=== PATIENT | female | born 1995 ===

== ENCOUNTER 2022-07-27 05:51 | Inpatient (IN) | payer SELFPAY ==
[2022-07-27] MEDS ORDERED: fentaNYL 100 MCG/2 ML INJ IV PRN (08:41)
[2022-07-27] MEDS ORDERED: OXYTOCIN DRIP 30 UNITS/500 ML BAG IV SCH ×2 (09:00)
--- NOTE | 2022-07-27 09:12 | History and Physical Report ---
History of Present Illness Date of examination: 07/27/22 Date of admission: 07/27/22 08:41 Chief complaint: Contractions History of present illness: 26-year-old primagravida at 39-2/7 weeks gestation presents to OB triage reporting regular and painful uterine contractions every 5 minutes. There is no vaginal bleeding. There is no leaking of fluid. There is good movement. In OB triage, cervix is noted be 4 cm dilated. She is admitted to labor and delivery in early labor. Past History Past Medical History: no pertinent history Past Surgical History: no surgical history Family/Genetic History: none Social history: no significant social history - Obstetrical History Expected Date of Delivery: 08/01/22 Actual Gestation: 39 Week(s) 2 Day(s) : 1 Para: 0 Hx # Term Pregnancies: 0 Number of Pregnancies: 0 Spontaneous Abortions: 0 Induced : 0 Number of Living Children: 0 Medications and Allergies Allergies Allergy/AdvReac Type Severity Reaction Status Date / Time No Known Allergies Allergy Unverified 07/27/22 08:22 Active Meds: Active Medications Acetaminophen (Acetaminophen 325 Mg Tab) 650 mg PO Q4H PRN PRN Reason: Pain, Mild (1-3) Butorphanol Tartrate (Butorphanol 2 Mg/1 Ml Inj) 2 mg IV Q2H PRN PRN Reason: Pain, Moderate(4-6) LABOR PAIN Carboprost Tromethamine (Carboprost Tromethamine 250 Mcg/1 Ml Inj) 250 mcg IM ONCE PRN PRN Reason: Uterine Bleeding Ephedrine Sulfate (Ephedrine Sulfate 50 Mg/1 Ml Inj) 10 mg IV Q2M PRN PRN Reason: Hypotension Fentanyl (Fentanyl 100 Mcg/2 Ml Inj) 100 mcg IV Q2H PRN PRN Reason: Pain,Severe (7-10) LABOR PAIN Oxytocin/Sodium Chloride (Pitocin/Ns 30 Unit/500ml) 30 units in 500 mls @ 2 mls/hr IV TITR DEION; Protocol Lactated Ringer's (Lactated Ringers) 1,000 mls @ 125 mls/hr IV DIRECT DEION Oxytocin/Sodium Chloride (Pitocin/Ns 30 Unit/500ml) 30 units in 500 mls @ 40 mls/hr IV TITR DEION; Protocol Methylergonovine Maleate (Methylergonovine Maleate 0.2 Mg/Ml Vial) 0.2 mg IM ONCE PRN PRN Reason: Uterine Bleeding Terbutaline Sulfate (Terbutaline 1 Mg/1 Ml Inj) 0.25 mg SUB-Q ONCE PRN PRN Reason: Hyperstimulation/Hypertonicity Review of Systems All systems: negative - Vital Signs Vital signs: Vital Signs Pulse Pulse Ox 69 98 07/27/22 06:47 07/27/22 06:47 Temp Pulse Resp BP Pulse Ox 98 F 70 16 148/80 100 07/27/22 07:45 07/27/22 09:09 07/27/22 07:45 07/27/22 09:07/27/22 09:07 - Physical Exam Breasts: Positive: normal Cardiovascular: Regular rate Lungs: Positive: Normal air movement Abdomen: Positive: normal appearance Genitourinary (Female): Positive: normal external genitalia, normal perenium Vulva: both: normal Vagina: Positive: normal moisture Uterus: Positive: enlarged Adnexa: both: normal Anus/Rectum: Positive: normal perianal skin Extremities: Positive: normal Deep Tendon Reflex Grade: Normal +2 - Obstetrical FHR: category 1 Uterine Contraction Monitor Mode: External Cervical Dilatation: 4 Uterine Contraction Frequency (min): 5 Results All other labs normal. Ultrasound: pending Assessment and Plan - Patient Problems (1) 39 weeks gestation of Current Visit: Yes Status: Acute Plan to address problem: care is up-to-date. She is GBS negative (2) Active labor at term Current Visit: Yes Status: Acute Plan to address problem: This patient is in early labor. Admit to labor and delivery. Augment with Pitocin. Epidural as needed. Artificial rupture membranes when possible.
[2022-07-27 09:43] LABS: Hematocrit 40.3 % (30.3-42.9); Hemoglobin 13.7 gm/dl (10.1-14.3); Mean Corpuscular HGB Conc 34 % (30-34); Mean Corpuscular Volume 89 fl (79-97); Platelet Count 191 K/mm3 (140-440); Red Blood Count 4.54 M/mm3 (3.65-5.03); Red Cell Distribution Width 13.7 % (13.2-15.2)
[2022-07-27] MEDS ORDERED: ACETAMINOPHEN 325 MG TAB PO PRN (10:00)
[2022-07-27] MEDS ORDERED: ePHEDrine SULFATE 50 MG/1 ML INJ IV PRN ×2 (10:00→15:01)
[2022-07-27] MEDS ORDERED: BUTORPHANOL 2 MG/1 ML INJ IV PRN (10:00)
[2022-07-27] MEDS ORDERED: METHYLERGONOVINE MALEATE 0.2 MG/ML VIAL IM PRN (10:00)
[2022-07-27] MEDS ORDERED: CARBOPROST TROMETHAMINE 250 MCG/1 ML INJ IM PRN (10:00)
[2022-07-27] MEDS ORDERED: TERBUTALINE 1 MG/1 ML INJ SUB-Q PRN (10:00)
[2022-07-27] MEDS ORDERED: LACTATED RINGERS 1,000 ML IV SCH (10:00)
--- NOTE | 2022-07-27 11:17 | Ultrasound Report ---
LIMITED OBSTETRICAL ULTRASOUND INDICATION: Labor, clinical dating 39 weeks 2 days COMPARISON: None available FINDINGS: Single intrauterine is seen in a cephalic position. Placenta is right lateral and free of the internal cervical os. Amniotic fluid appears qualitatively reduced and JUAN F is reduced at 4.4 cm. No obvious anatomic abnormalities are seen but this was not an anatomic survey. Cardiac acti vity was documented at 131 bpm period Dating is as follows (weeks.days): BPD 8.83 cm, 35.5 Head circumference 31.06 cm, 34.5 Abdominal circumference 33.15 cm, 37.0 Femur length 7.14 cm, 36.4 Average ultrasound age 36.0, EDC 08/24/2022 Estimated weight 2960 +/- 4 3 8 g IMPRESSION: 36 week 0 day single intrauterine with decreased amniotic fluid Signer Name: Matt Dickerson MD Signed: 07/27/2022 11:13 AM Workstation Name: [id number]
[2022-07-27 11:43] LABS: Alanine Aminotransferase 16 units/L (7-56); Albumin 3.6 g/dL (3.9-5); BUN/Creatinine Ratio 13; Blood Urea Nitrogen 10 mg/dL (7-17); Calcium 9.8 mg/dL (8.4-10.2); Hemolysis Index 2; Uric Acid 3.9 mg/dL (3.5-7.6)
[2022-07-27] MEDS ORDERED: NALOXONE 0.4 MG/1 ML INJ IV PRN (15:01)
--- NOTE | 2022-07-27 15:03 | Anesthesia Consultation ---
Anesthesia Consult and Med Hx Date of service: 07/27/22 - Airway Anesthetic Teeth Evaluation: Good ROM Head & Neck: Adequate Mental/Hyoid Distance: Adequate Mallampati Class: Class II Intubation Access Assessment: Probably Good - Pulmonary Exam CTA: Yes - Cardiac Exam Cardiac Exam: RRR - Pre-Operative Health Status ASA Pre-Surgery Classification: ASA2 Proposed Anesthetic Plan: Epidural - Pulmonary Hx Smoking: No Hx Asthma: No Hx Respiratory Symptoms: No SOB: No COPD: No Home Oxygen Therapy: No Hx Pneumonia: No Hx Sleep Apnea: No - Cardiovascular System Hx Hypertension: No Hx Coronary Artery Disease: No Hx Heart Attack/AMI: No Hx Angina: No Hx Percutaneous Transluminal Coronary Angioplasty (PTCA): No Hx Cardia Arrhythmia: No Hx Pacemaker: No Hx Internal Defibrillator: No Hx Valvular Heart Disease: No Hx Heart Murmur: No Hx Peripheral Vascular Disease: No - Central Nervous System Hx Neuromuscular Disorder: No Hx Seizures: No CVA: No Hx Back Pain: No Hx Psychiatric Problems: No - Gastrointestinal Hx Ulcer: No Hx Gastroesophageal Reflux Disease: No - Endocrine Hx Renal Disease: No Hx End Stage Renal Disease: No Hx Cirrhosis: No Hx Liver Disease: No Hx Insulin Dependent Diabetes: No Hx Non-Insulin Dependent Diabetes: No Hx Thyroid Disease: No Hx Hypothyroidism: No Hx Hyperthyroidism: No - Hematic Hx Anemia: No Hx Sickle Cell Disease: No - Other Systems Hx Alcohol Use: No Hx Substance Use: No Hx Cancer: No Hx Obesity: No
--- NOTE | 2022-07-27 15:03 | Anesthesia Day of Surgery ---
Anesthesia Day of Surgery - Day of Surgery Patient Examined: Yes Patient H&P Reviewed: Yes Patient is NPO: Yes Beta Blockers: No Cardiac Clearance: No Pulmonary Clearance: No Ho's Test: N/A
--- NOTE | 2022-07-27 15:04 | Progress Note ---
Labor Epidural - Labor Epidural Start Time: 14:38 Stop Time: 14:45 Performed by:: GENE WALKER Procedure: Epidural Requested for Labor Pain. H&P and PT Chart reviewed and consent obtained. Time out performed and the procedure was explained, all questions answered. Patient was placed in a sitting position with monitors applied. The PTs back was prepped and draped in usual sterile fashion. The Skin was localized with 3 mL of 1% lidocaine at L3-L4. A 17-gauge Touhy epidural needle was advanced to SHAYY with saline at 7 cm and no blood/CSF was noted via epidural needle. Epidural catheter was advanced to 12 cm. There was negative aspiration for blood and CSF in the catheter and negative response to a test dose of 3 ml 1.5% lidocaine w/ Epi and a sterile dressing was applied Patient tolerated the procedure well and there were no immediate complications noted.
[2022-07-27] MEDS ORDERED: fentaNYL-BUPIV 2 MCG/ML-0.125% 200 MCG/100 ML BAG EPIDURAL SCH (15:30)
[2022-07-27] MEDS ORDERED: MINERAL OIL 30 ML ORAL LIQD ONE (16:56)
[2022-07-27] MEDS ORDERED: miSOPROStol 200 MCG TAB ONE (18:40)
[2022-07-27] MEDS ORDERED: miSOPROStol 200 MCG TAB PR ONE (18:46)
--- NOTE | 2022-07-27 19:20 | Procedure Note ---
OB Delivery Note - Delivery Date of Delivery: 07/27/22 (1831) Surgeon: REBA REESE Estimated blood loss: other (400) - Vaginal Delivery presentation: vertex Delivery position: OA Intrapartum events: none Delivery induction: none Delivery augmentation: pitocin Delivery monitor: external FHT, external uterine Route of delivery: Delivery placenta: spontaneous Delivery cord: 3 umbilical vessels Episiotomy: none Delivery laceration: 2nd degree Delivery repair: vicryl Anesthesia: epidural Delivery comments: of a live 6'8 male over a 2nd degree perineal laceration under epidural with Apgars of 8 and 9 at 1831 on 07/27/2022. directly to maternal abd/maternal chest, skin to skin contact. 2nd degree laceration repaired with 2-[address]-1 and SH. Large gushes of uterine bleeding prior to delivery of placenta. Spontaneous delivery of placenta complete and intact with Ramachandran side presenting at 1835. Large amount of uterine bleeding after delivery of placenta. Bleeding became scant with external uterine massage, Methergine 0.2mg IM and Cytotec 800mcg per rectum. Delayed cord clamping and cutting; Cord cut by the Father of the Baby. Cord blood collected; Placenta discarded. - A at 1 minute: 8 at 5 minutes: 9 Infant Gender: Male (6'8)
[2022-07-27] MEDS ORDERED: HYDROcodone/ACETAMINOPHEN 5-325 MG TAB PO PRN (19:24)
[2022-07-27] MEDS ORDERED: WITCH HAZEL/ GLYCERIN PAD TP PRN (19:24)
[2022-07-27] MEDS ORDERED: BENZOCAINE/MENTHOL 20/0.5% TOP SPRAY 56 GM TP PRN (19:24)
[2022-07-27] MEDS ORDERED: LANOLIN/ZINC/DIMETHICONE (LANSINOH) 7 GM TP PRN (19:24)
[2022-07-27] MEDS ORDERED: PROMETHAZINE 25 MG TAB PO PRN (19:24)
[2022-07-27] MEDS ORDERED: diphenhydrAMINE 25 MG CAP PO PRN (19:24)
[2022-07-28] MEDS: IBUPROFEN 800 MG TAB PO SCH ×3 (03:29→17:12)
[2022-07-28] MEDS ORDERED: PRENATAL VIT27-FE FUMARATE-FOLIC ACID VIT TAB PO SCH (10:00)
--- NOTE | 2022-07-28 11:42 | Progress Note ---
Assessment and Plan PPD # 1 A: S/P p: Continue routine pp orders Awaiting pp cbc D/C home tomm if stable Subjective - Subjective Date of service: 07/28/22 Principal diagnosis: s/p Patient reports: appetite normal, voiding normally, pain well controlled, ambulating normally : other (Pt states baby is not eating well and is vomting formula back up. Nurse and peds were notified.) Objective - Vital Signs Latest vital signs: Vital Signs Temp Pulse Resp BP Pulse Ox Pulse Ox 07/28/22 10:52 16 07/28/22 05:06 98.4 F 92 H 20 122/72 96 07/28/22 04:29 18 07/28/22 03:29 20 07/28/22 02:21 98.8 F 86 20 138/87 98 07/27/22 21:41 99.4 F 86 18 133/94 100 100 07/27/22 19:53 103 H 116/81 07/27/22 19:36 110 H 136/71 07/27/22 19:25 110 H 125/59 07/27/22 19:06 104 H 116/80 07/27/22 18:51 150 H 129/82 07/27/22 18:43 137 H 128/74 07/27/22 18:24 129 H 145/80 07/27/22 18:09 134 H 159/88 07/27/22 17:54 113 H 126/80 07/27/22 17:39 115 H 139/92 07/27/22 17:24 133 H 155/74 07/27/22 16:30 98.2 F 07/27/22 16:10 81 97/41 07/27/22 16:07 74 101/72 07/27/22 15:07 82 119/71 07/27/22 15:05 94 H 112/67 07/27/22 15:03 104 H 114/69 07/27/22 15:01 95 H 117/71 07/27/22 15:00 98.2 F 07/27/22 14:59 111 H 110/68 07/27/22 14:57 93 H 121/72 07/27/22 14:55 104 H 122/74 07/27/22 14:53 100 H 117/77 07/27/22 14:51 94 H 121/75 07/27/22 14:49 83 124/80 07/27/22 14:47 82 129/78 07/27/22 14:46 80 138/79 07/27/22 14:25 86 149/78 07/27/22 13:55 85 153/80 07/27/22 13:24 64 137/85 07/27/22 12:54 71 147/85 07/27/22 12:24 65 151/88 07/27/22 11:43 72 147/77 100 Intake and Output 07/27/22 07/28/22 07/28/22 22:59 06:59 14:59 Intake Total 6.267 360 Balance 6.267 360 Intake: IV 6.267 PITOCin/NS 30 UNIT/500ML 6.267 30 units In 500 ml @ 2 mls/hr IV TITR DEION Rx#: [id number] Intake, Free Water 360 Other: # Voids Void 1 Estimated Blood Loss 200 - Exam Breasts: Present: normal Abdomen: Present: normal appearance, soft, normal bowel sounds Vulva: both: normal Uterus: Present: normal, firm, fundal height below umbilicus Extremities: Present: normal Incision: Present: normal, intact - Labs Labs: Abnormal lab results 07/27/22 Range/Units Unknown Sodium 135 L (137-145) mmol/L Alkaline Phosphatase 435 H (35-129) units/L Lactate Dehydrogenase 255 H (91-180) units/L Albumin 3.6 L (3.9-5) g/dL
--- NOTE | 2022-07-28 12:00 | Discharge Summary ---
Providers - Providers Date of Admission: 07/27/22 08:41 Date of discharge: 07/29/22 Attending physician: TROY HERNANDEZ MD Primary care physician: TROY HERNANDEZ MD Hospitalization Reason for admission: active labor Delivery: Episiotomy: none Laceration: 2nd degree Incision: normal, intact Other procedures: none complications: none Discharge diagnosis: IUP at term delivered baby: male Hospital course: Pt was admitted to [facility] in active labor. She had a w/o pp complications. See H&P, delivery summary and pp notes. Condition at discharge: Stable Disposition: HOME / SELF CARE / HOMELESS Plan - Discharge Medications Prescriptions: Benzocaine/Menthol [Dermoplast] 1 spray TP PRN PRN 7 Days #1 can PRN Reason: Episiotomy Pain Ibuprofen [Motrin 800 MG tab] 800 mg PO Q6H PRN #20 tablet PRN Reason: Menstrual Cramps - Provider Discharge Summary Activity: routine, no sex for 6 weeks, no heavy lifting 4 weeks, no strenuous exercise Diet: routine Instructions: routine Additional instructions: [] Smoking cessation referral if applicable(refer to patient education folder for contact #) [] Refer to [facility]'s [facility] Booklet Call your doctor immediately for: * Fever > 100.5 * Heavy vaginal bleeding ( >1 pad per hour) * Severe persistent headache * Shortness of breath * Reddened, hot, painful area to leg or breast * Drainage or odor from incision. * Keep incision clean and dry at all times and follow doctor's instructions regarding bathing/showering - Follow up plan Follow up: TROY HERNANDEZ MD [Primary Care Provider] - 6 Weeks
[2022-07-28 12:49] LABS: Hematocrit 31.9 % (30.3-42.9); Hemoglobin 10.8 gm/dl (10.1-14.3)
[2022-07-28 16:55] VITALS: BP 117/76
--- NOTE | 2022-07-28 21:35 | Post Anesthesia Evaluation ---
- Post Anesthesia Evaluation Patient Participated: No Airway Patent: Yes Stable Respiratory Function: Yes Nausea/Vomiting: No Temp > 96.8F: Yes Pain Manageable: Yes Adequeate Hydration: Yes Anesthesia Complications: No Block Receding Appropriately: Yes Patient on Ventilator: No
== END 2022-07-28 23:36 | disposition home or self-care (01) | DRG 807 ==
LOC: TRG 05:51 → APU 05:53 → TRG 09:00 → LD 12:04 → OB 21:34
PROVIDERS: ADMIT Obstetrics & Gynecology Gynecology; ATTEND Obstetrics & Gynecology Gynecology
PROC: 10E0XZZ Delivery of Products of Conception, External Approach (ICD-10-PCS; principal; 2022-07-27)
PROC: 0KQM0ZZ Repair Perineum Muscle, Open Approach (ICD-10-PCS; 2022-07-27)
PROC: 3E0S3BZ Introduction of Anesthetic Agent into Epidural Space, Percutaneous Approach (ICD-10-PCS; 2022-07-27)
PROC: 00HU33Z Insertion of Infusion Device into Spinal Canal, Percutaneous Approach (ICD-10-PCS; 2022-07-27)
DX: O70.1 Second degree perineal laceration during delivery (principal); Z37.0 Single live birth; Z3A.39 39 weeks gestation of pregnancy; Z20.822 Contact with and (suspected) exposure to COVID-19
CPT/HCPCS: 36415; 76816; 80053; 83615; 84550; 85014; 85018; 85027; 86850; 86900; 86901; G0378; J3490; J2210; J2590; J7120; U0003